=== PATIENT | male | born 1990 | race Caucasian/White ===

== ENCOUNTER 2017-11-30 13:57 | Emergency (ER) | payer MEDICAID ==
[2017-11-30 14:06] VITALS: BP 143/96
[2017-11-30] MEDS ORDERED: LIDOCAINE 2% 10 ML MDV SUBQ STA (14:35)
[2017-11-30] MEDS ORDERED: LIDOCAINE 1% 2 ML VIAL SUBQ ONE (14:36)
[2017-11-30] MEDS ORDERED: cefTRIAXone 1 GM VIAL IM STA (14:36)
[2017-11-30] MEDS ORDERED: BACITRACIN OINT TOP ONE (15:31)
--- NOTE | 2017-11-30 15:42 | ED Physician Documentation ---
History of Present Illness - Stated complaint Stated Complaint: RT FOOT WOUND/RT LEG PX - Chief complaint Chief Complaint: Ext Problem - History obtained from History obtained from: Patient - History of Present Illness Timing: How many days ago (Several days ago) Pain level max: 4 Pain level now: 4 - Additonal information Additional information: Patient is a 27-year-old male who presents to the emergency department with an infection to the right foot for the past several days. He was prescribed Bactrim and Keflex 2 days ago, but did not start taking them until yesterday. States increased redness today. Denies any fevers or chills. Denies any vomiting. Denies any abdominal or back pain. States that he believes this started after obtaining new boots. Denies any history of diabetes. Denies any IV drug use. Review of Systems Constitutional: denies: Fever, Chills GI: denies: Vomiting Skin: denies: Rash Musculoskeletal: denies: Neck pain, Back pain Neurologic: denies: Headache PD PAST MEDICAL HISTORY - Past Medical History Past Medical History: Yes Respiratory: Asthma - Past Surgical History Past Surgical History: Yes General: Hiatal hernia repair - Present Medications Home Medications: Ambulatory Orders Medication Instructions Recorded Confirmed Meloxicam [Mobic] 7.5 mg PO BID PRN #20 tablet 11/30/17 - Allergies Allergies/Adverse Reactions: Allergies Allergy/AdvReac Type Severity Reaction Status Date / Time No Known Drug Allergies Allergy Verified 11/30/17 14:06 - Social History Does the pt smoke?: Yes Smoking Status: Current every day smoker Does the pt drink ETOH?: Yes Does the pt have substance abuse?: Yes Substance Use and Type: Marijuana - Immunizations Immunizations are current?: Yes PD ED PE NORMAL - Vitals Vital signs reviewed: Yes - General General: Alert and oriented X 3 - HEENT HEENT: Moist mucous membranes - Neck Neck: Supple, no meningeal sign - Cardiac Cardiac: RRR, No murmur - Respiratory Respiratory: No respiratory distress, Clear bilaterally - Derm Derm: Warm and dry - Extremities Extremities: Other (Right great toe with redness and swelling over the proximal phalanx, slight drainage present. Also has erythema approximately two thirds of the way up the foot. No crepitus. NVI. no plantar tenderness. ) - Neuro Neuro: Alert and oriented X 3 - Psych Psych: Normal mood, Normal affect Results - Vitals Vitals: Vital Signs - 24 hr 11/30/17 14:03 Temperature 36.1 C L Heart Rate 86 Respiratory 16 Rate Blood Pressure 143/96 H O2 Saturation 99 Oxygen O2 Source Room air - Labs Labs: Microbiology 11/30/17 15:20 Wound Culture - Preliminary Toe - Right Big Procedures - Abscess I&D (location) R great toe Preparation: Confirmed with ultrasound, Chlorhexadine, Lidocaine 2 % Incision: Incised with scalpel, Purulent drainage, Culture obtained Other: Pt tolerated well, Antibiotic prescribed PD MEDICAL DECISION MAKING - ED course Complexity details: considered differential, d/w patient ED course: Patient is a 27-year-old male who presents to the emergency department with cellulitis of the right foot as well as a small abscess to the dorsal aspect of the right great toe. Incised and drained. Tolerated well. Patient is already on Keflex and Bactrim. Given Rocephin in the emergency department. We will have him continue the antibiotics and see how he progresses over the next 24 hours. Patient counseled regarding signs and symptoms for which I believe and urgent re-evaluation would be necessary. Patient with good understanding of and agreement to plan and is comfortable going home at this time This document was made in part using voice recognition software. While efforts are made to proofread this document, sound alike and grammatical errors may occur. Departure - Departure Disposition: 01 Home, Self Care Clinical Impression: Abscess Cellulitis Qualifiers: Site of cellulitis: extremity Site of cellulitis of extremity: lower extremity Laterality: right Qualified Code(s): L03.115 - Cellulitis of right lower limb Condition: Good Instructions: ED Abscess IandD, ED Infec Skin Cellulitis Follow-Up: your,doctor in 2 days for wound check. [Other] Prescriptions: Meloxicam [Mobic] 7.5 mg PO BID PRN #20 tablet PRN Reason: Pain Comments: Continue the antibiotics as were previously prescribed. You should improve over the next 24 hours. If you develop fevers or worsening redness over the next 24 hours, please return for repeat evaluation. Otherwise follow-up with your doctor in 2-3 days for wound check. If your doctor is unable to see you, return here for repeat evaluation. Discharge Date/Time: 11/30/17 15:59
== END 2017-11-30 15:59 | disposition home or self-care (01) ==
LOC: EDBD → ED 13:57
DX: L02.611 Cutaneous abscess of right foot (principal); L03.115 Cellulitis of right lower limb; F17.200 Nicotine dependence, unspecified, uncomplicated
CPT/HCPCS: 10060; 87070; 87181; 87205; 96372; 99283; A9270